=== PATIENT | female | born 1945 | race Caucasian/White ===

== ENCOUNTER 2017-05-22 06:54 | Day surgery (SDC) | payer MEDICARE, OTHER ==
[2017-05-17 12:36] LABS: HEMATOCRIT 39.4 % (36.0-48.0); HEMOGLOBIN 13.1 g/dL (12.0-16.0)
[~2017-05-22] VITALS: Ht 160 cm; Wt 68.2 kg
--- NOTE | ~2017-05-22 | OP ---
Record Of Operation [facility] [address] [place]. [address] NAME: KUSHAL POLANCO : 49 [place]US : [place] [facility] [place] [id number] AGE: 71 ADM/REG DATE : 05/22/17 MR#: [id number] REPORT SERV DATE: 05/22/17 DICTATED BY: HARPRETE PFEIFFER DATE: 05/22/17 REPORT STATUS : Draft TRANSCRIBED BY: CALIN DATE: 05/22/17 DATE OF PROCEDURE: 05/22/2017 PROCEDURE: Left tympanomastoidectomy. PREOPERATIVE DIAGNOSIS: Left chronic mastoiditis. POSTOPERATIVE DIAGNOSIS: Left chronic mastoiditis. ANESTHESIA: General endotracheal. COMPLICATION: None. FINDINGS: The patient was taken to the OR, placed in supine position. Then was anesthetized, prepped, and draped. Ear speculum was inserted in the ear canal and it was irrigated with Betadine. External auditory canal and postauricular area had been injected with 1% Xylocaine with epinephrine. Posterior auricular incision made. This carried down to the mastoid periosteum. The mastoid periosteum was elevated with a Lempert elevator. External auditory canal skinned and elevated with a canal knife. The vascular strip was elevated along the temporal meatal flap. Middle ear was noted to be without cholesteatoma. Chorda tympani was preserved. Ossicular chain appeared to be intact. The patient had dense adhesions around the stapes, the malleus, and the area of the incus. Simple mastoidectomy began with a large cutting bur. Tegmen was identified and outlined. Dissection proceeded in the superior posterior quadrant to identify Korner septum. Once Korner septum was identified and entered, the mastoidectomy was widened. This was followed into the aditus ad antrum. Horizontal canal was noted. The patient had dense granulation tissue noted through a significant portion of the mastoid cavity. Care was taken to try to meticulously remove this. The horizontal canal appeared to be intact. Dense adhesions were removed from the epitympanum. At no time did the facial nerve appeared to be exposed. At the end of the case, it appears still to be intact as verified with NIM nerve stimulator. The NIM nerve monitor was used throughout the case. Once the epitympanum, aditus ad antrum, and mastoid was cleared of granulation tissue, a graft then was placed medial to the tympanic membrane. A small amount of Gelfoam placed in the middle ear cavity. Tympanomeatal flap and Gelfoam placed lateral to this. Postauricular incision was closed with two deep layers of 4-0 Vicryl suture and a cutaneous closure of 5-0 chromic in a horizontal mattress fashion. Vascular strip replaced and the canal filled with Gelfoam. A Apolonia mastoid dressing was placed. The patient then was awakened, extubated, and taken recovery room in good condition. In summary, patient's findings were consistent with a chronic mastoiditis with significant adhesions along the ossicular chain. Underlay graft was placed. A small amount of dura was exposed in the tegmen, which was covered with bone dust at the end of the case. There was no evidence of injury to the sigmoid sinus or dura. The patient's ossicular chain appeared to be intact and the facial nerve appeared to be bony covered. /[facility] Record Of Operation [address] [address] NAME: KUSHAL POLANCO : 49 [place]US : [place] [facility] [place]#: [id number] AGE: 71 ADM/REG DATE : 05/22/17 MR#: [id number] REPORT SERV DATE: 05/22/17 DICTATED BY: HARPREET PFEIFFER DATE: 05/22/17 REPORT STATUS : Draft TRANSCRIBED BY: MODL DATE: 05/22/17 Harpreet Pfeiffer M.D. / [id number] CC: Nathalie Ramirez M.D.
[~2017-05-22 06:54] MED LIST: ACT300 PO; BIOTIN5 MG PO; LIPITOR20 PO; VITAMIN D31000 UNIT PO; VITE1000 PO; ZOL50 PO; [UNRECOGNIZED DRUG - OTHER]
== END 2017-05-22 15:09 | disposition home or self-care (01) ==
LOC: SDC 06:54
PROVIDERS: Otolaryngology
PROC: 09U807Z Supplement Left Tympanic Membrane with Autologous Tissue Substitute, Open Approach (ICD-10-PCS; 2017-05-22)
PROC: 09BC0ZZ Excision of Left Mastoid Sinus, Open Approach (ICD-10-PCS; principal; 2017-05-22 08:15)
DX: H70.12 Chronic mastoiditis, left ear (principal); F41.9 Anxiety disorder, unspecified; E78.00 Pure hypercholesterolemia, unspecified; Z79.899 Other long term (current) drug therapy; Z79.52 Long term (current) use of systemic steroids; Z88.5 Allergy status to narcotic agent; Z90.49 Acquired absence of other specified parts of digestive tract; Z90.710 Acquired absence of both cervix and uterus; Z98.890 Other specified postprocedural states
CPT/HCPCS: 85014; 85018; 88304; 88341; 88342; 93005; A9270-GY; C1781; J0330; J2250; J2370; J2405; J3010